=== PATIENT | female | born 1980 | race African-American/Black ===

== ENCOUNTER 2019-06-09 09:22 | Emergency (ER) | payer OTHER ==
[2019-06-09] MEDS ORDERED: Dexamethasone 4 MG TAB ONE (10:28)
== END 2019-06-09 11:36 | disposition home or self-care (01) ==
LOC: ERS 09:22
DX: J45.901 Unspecified asthma with (acute) exacerbation (principal); F17.210 Nicotine dependence, cigarettes, uncomplicated; Z79.51 Long term (current) use of inhaled steroids
CPT/HCPCS: 94640; J7620; J8540

== ENCOUNTER 2020-05-10 09:27 | Emergency (ER) | payer OTHER ==
[2020-05-10] MEDS ORDERED: Albuterol 200 PUFF (6.7GM INHALER) ONE (09:38)
--- NOTE | 2020-05-10 10:57 | RAD ---
XR Chest 1 View Portable HISTORY: Dyspnea COMPARISON: 04/04/2014 FINDINGS: The heart size is normal. The lungs are well expanded without focal areas of consolidation, pneumothorax or pleural effusions. IMPRESSION: No radiographic evidence of acute cardiopulmonary process.
[2020-05-10] MEDS ORDERED: Dexamethasone 10 MG/ML VIAL ONE (11:13)
[2020-05-10] MEDS ORDERED: Magnesium 2 GM/50 ML BAG (IN WATER) ONE (11:13)
[2020-05-10] MEDS ORDERED: Acetaminophen 500 MG TAB ONE (11:37)
[2020-05-10] MEDS ORDERED: Albuterol Sulfate 2.5 mg/3 ml Neb ONE (12:28)
[2020-05-11 15:38] LABS: SARS-CoV-2 MS2 Positive; SARS-CoV-2 N Gene Negative; SARS-CoV-2 S Gene Negative; SARS-CoV-2 by NAA Not Detected (NotDetected); SARS-CoV-2 orf1ab Negative
== END 2020-05-10 13:43 | disposition home or self-care (01) ==
LOC: ERS 09:27
DX: J45.901 Unspecified asthma with (acute) exacerbation (principal); F17.210 Nicotine dependence, cigarettes, uncomplicated; Z79.899 Other long term (current) drug therapy
CPT/HCPCS: 71045; 87635; 94644; 94664; 96365; 96375; J1100; J3475; J7611; J7620; U0003

== ENCOUNTER 2025-06-20 09:23 | Emergency (ER) | payer OTHER, SELFPAY ==
[2025-06-20] MEDS ORDERED: Ketorolac Tromethamine 30 MG (1 mL) VIAL ONE (09:44)
[2025-06-20] MEDS ORDERED: cefTRIAXone (ROCEPHIN) 1 GM VIAL ONE (09:44)
[2025-06-20] MEDS ORDERED: Dexamethasone 10 MG/ML VIAL ONE (09:44)
== END 2025-06-20 10:50 | disposition home or self-care (01) ==
LOC: ERS 09:23
DX: J02.0 Streptococcal pharyngitis (principal); F17.210 Nicotine dependence, cigarettes, uncomplicated
CPT/HCPCS: 87428; 87430; 96365; 96375; J0696; J1100; J1885